=== PATIENT | female | born 2000 | race African-American/Black ===

== ENCOUNTER 2023-04-28 21:36 | Emergency (ER) | payer SELFPAY ==
[2023-04-28 21:39] VITALS: BP 116/76; PULSE 84; RESP 16; TEMP 36.4; O2SAT 100
== END 2023-04-28 22:30 | disposition left against medical advice (07) ==
LOC: ANHED 22:28
DX: R10.2 Pelvic and perineal pain (principal)
CPT/HCPCS: 99199

== ENCOUNTER 2023-04-29 04:43 | Emergency (ER) | payer SELFPAY ==
[2023-04-29 04:46] VITALS: BP 123/79; PULSE 85; RESP 20; TEMP 36.8; O2SAT 98
[2023-04-29 04:57] VITALS: BP 114/86; PULSE 84; RESP 14; TEMP 36.3; O2SAT 100
--- NOTE | 2023-04-29 05:03 | ED.FEMALEGU ---
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 Patient states that when she took her antibiotics this morning she took them while eating a popsicle and had nausea and vomiting after this. Patient did not retry the medications. Upon arrival to the emergency department patient has no active emesis and is in no distress. Related Data Allergies Allergy/AdvReac Type Severity Reaction Status Date / Time meningococcal vaccine B and C Allergy Rash Verified 04/29/23 04:57 Review of Systems Review of Systems: All systems reviewed & are unremarkable except as noted in HPI and below Exam Narrative: APPEARANCE: Well appearing, no pain, no distress, well-nourished. HEAD: normocephalic, atraumatic. EYES: PERRLA/EOMI, conjunctivae clear. NOSE: Normal no drainage EARS:TMS clear with good light reflex. THROAT: Pharynx clear, no exudate. NECK: Supple. No adenopathy, no masses. RESPIRATORY: Airway patent, respirations nonlabored. Clear to auscultation bilaterally, no rales, rhonchi, wheezing. CARDIOVASCULAR: Regular rate and rhythm without murmurs rubs or gallops. ABDOMINAL: No tenderness to palpation MUSCULOSKELETAL: Moves all extremities. Strength/ROM intact, No edema, No calf tenderness. NEURO: Alert. Cranial nerves II through XII intact. Grossly intact SKIN: Warm, dry. Normal Color Course Course Emergency Course: 22-year-old female presenting ED for evaluation of nausea and vomiting from taking doxycycline and Flagyl. Patient was treated with 2 g of azithromycin and told to stop the doxycycline and patient was started on vancomycin vaginal cream and replacement of the Flagyl. Patient states that she tried taking her medications after eating a pickle. Difficult to determine if this is an adverse reaction to the medication or if this was caused by her eating habits. Patient was encouraged to have close follow-up with her primary care physician. All questions and concerns were addressed. Vital Signs Vital signs: Vital Signs Temperature 98.2 F 04/29/23 04:46 Pulse Rate 85 04/29/23 04:46 Respiratory Rate 20 04/29/23 04:46 Blood Pressure 123/79 04/29/23 04:46 Pulse Oximetry 98 04/29/23 04:46 Temperature 98.1 F 04/29/23 06:09 Pulse Rate 70 04/29/23 06:09 Respiratory Rate 14 04/29/23 06:09 Blood Pressure 113/72 04/29/23 06:09 Pulse Oximetry 99 04/29/23 06:09 Discharge Plan Discharge Clinical Impression: Nausea & vomiting Patient Disposition: Home, Self-Care Condition: Stable Instructions: Antibiotic Form Additional Instructions: stop taking the doxycycline, you were treated with 2 g of p.o. azithromycin. Stop taking the metronidazole and start using the vancomycin vaginal cream as directed. Have close follow-up with your primary care physician. If you have any worsening symptoms then please call or return to the emergency department. Prescriptions: New clindamycin phosphate 2 % cream 1 appful vaginal DAILY 7 Days Qty: 40 0RF Follow-up/Referrals: UNKNOWN,DOCTOR [Primary Care Provider] -
[2023-04-29] MEDS: SODIUM CHLORIDE 0.9% IV 1,000 ML 999 ML IV CONT (05:11)
[2023-04-29] MEDS: ONDANSETRON INJ 4 MG/2 ML VIAL IV PUSH (05:12)
[2023-04-29] MEDS: HYDROmorphone HCL INJ (*CRX) 1 MG/ML SYR 0.5 MG IV PUSH (05:13)
[2023-04-29] MEDS: AZITHROMYCIN 250 MG TABLET 2000 MG PO (05:29)
[2023-04-29 06:09] VITALS: BP 113/72; PULSE 70; RESP 14; TEMP 36.7; O2SAT 99
== END 2023-04-29 06:10 | disposition home or self-care (01) ==
PROVIDERS: Emergency Provider Emergency Medicine
DX: R11.2 Nausea with vomiting, unspecified (principal)
CPT/HCPCS: 96361; 96374; 96375; 99284; A9270; J1170; J2405; J7030

== ENCOUNTER 2023-07-18 22:27 | Emergency (ER) | payer SELFPAY ==
--- NOTE | ~2023-07-18 | CT_ITS ---
CT of the Abdomen and Pelvis: Indication: Pelvic pain Technique: 2.5 mm axial scans were obtained through the abdomen and pelvis following intravenous adm inistration of 100 cc of Omnipaque 350. Dose reduction technique was used on this scan by utilizing a utomated exposure control and iterative reconstruction technique. The dose-length product (DLP) was 1 85.85 mGy-cm. Findings: Scans through the lung bases are unremarkable. The liver, spleen, pancreas, gallbladder, adrenals and kidneys are within normal limits. No evidence of aortic aneurysm. No lymphadenopathy. No bowel obstruction or bowel wall thickening. There is no evidence to suggest acute appendicitis. Images through the pelvis were performed. Urinary bladder unremarkable. No adnexal mass evident. Prob able small amount of free fluid in the pelvis. Impression: Probable small amount of free fluid in the pelvis, nonspecific. No other distinct abnormality evident. Reviewed, dictated and finalized at [facility]. Impression: Probable small amount of free fluid in the pelvis, nonspecific. No other distinct abnormality evident.
[2023-07-18 22:33] VITALS: BP 121/75; PULSE 86; RESP 14; TEMP 36.2; O2SAT 99
[2023-07-18 23:00] LABS: Appearance Urine Cloudy (Clear); Bacteria Urine None Seen /hpf; Bilirubin Urine Negative (Negative); Blood Urine Negative (Negative); Color Urine Yellow (Yellow); Glucose Urine UA Negative (Negative); Ketones Urine Negative (Negative); Leukocyte Esterase Ur Negative LEU/UL (Negative); Nitrate Urine Negative (Negative); Non Pathogenic Casts 0-2; Protein Urine Negative (Negative); RBC Urine 0-2 /hpf (0-2); Specific Grav Ur 1.018 (1.001-1.035); Squamous Epithelial Cell Urine Occasional /hpf (Few); WBC Urine 0-5 /hpf
[2023-07-18 23:09] LABS: Add Urine Microscopic? YES
--- NOTE | 2023-07-18 23:54 | ED.GENADULT ---
HPI - General Adult General Chief complaint: Urogenital-Female Stated complaint: pelvic pain Time Seen by Provider: 07/18/23 22:49 History of Present Illness HPI narrative: patient 22-year-old female presents emergency department with chief complaint of left inguinal and left lower quadrant pain. Patient reports that last several days she has had a discomfort feeling in left hip area patient states she feels as though something is moving around whenever she walks patient reports no vaginal discharge denies dysuria reports that she has had no abnormal bleeding reports no flank pain denies vomiting or diarrhea. Related Data Allergies Allergy/AdvReac Type Severity Reaction Status Date / Time meningococcal vaccine B and C Allergy Rash Verified 04/29/23 04:57 Review of Systems Review of Systems: A 10 system review of systems was completed on the patient and is negative except for what is stated in the HPI. Nursing and ancillary documentation was reviewed. Exam Narrative: GENERAL: Well-appearing, well-nourished, and in no acute distress. HEAD: Normocephalic, atraumatic. EYES: PERRLA and EOMI. ENT: Nares clear, no rhinorrhea or epistaxis. Mucous membranes moist. NECK: Supple. CHEST: Clear to auscultation. No respiratory distress. HEART: Regular rate and rhythm. No murmur heard. Normal peripheral pulses. ABDOMEN: Soft, Minimal discomfort in the left lower quadrant, nondistended, normal active bowel sounds. EXTREMITIES: Normal range of motion. No edema. SKIN: Warm, dry, no rash. NEURO: No focal deficits. Alert and oriented x3. PSYCH: Normal mood and affect. Course Vital Signs Vital signs: Vital Signs Temperature 36.2 C L 07/18/23 22:33 Pulse Rate 86 07/18/23 22:33 Respiratory Rate 14 07/18/23 22:33 Blood Pressure 121/75 07/18/23 22:33 Pulse Oximetry 99 07/18/23 22:33 Temperature 36.2 C L 07/18/23 22:33 Pulse Rate 86 07/18/23 22:33 Respiratory Rate 14 07/18/23 22:33 Blood Pressure 121/75 07/18/23 22:33 Pulse Oximetry 99 07/18/23 22:33 Medical Decision Making [facility] Narrative Medical decision making narrative: differential diagnosis includes diverticulitis, colitis, ovarian cyst, laboratory studies were obtained on the patient showed normal CBC normal CMP urinalysis showed no evidence UTI test was negative CT scan of the abdomen pelvis showed evidence of a 2.1 x 1 x 1.4 cm cystic structure of the left posterior pelvis consistent with an ovarian cyst Vital Signs Vital Signs: Vital Signs Temperature 36.2 C L 07/18/23 22:33 Pulse Rate 86 07/18/23 22:33 Respiratory Rate 14 07/18/23 22:33 Blood Pressure 121/75 07/18/23 22:33 Pulse Oximetry 99 07/18/23 22:33 Temperature 36.2 C L 07/18/23 22:33 Pulse Rate 86 07/18/23 22:33 Respiratory Rate 14 07/18/23 22:33 Blood Pressure 121/75 07/18/23 22:33 Pulse Oximetry 99 07/18/23 22:33 Lab Data 07/19/23 00:02 07/19/23 00:02 Labs: Lab Results 07/18/23 07/19/23 07/19/23 Range/Units 22:39 00:02 00:18 WBC 5.6 (4.5-10.0) K/mm3 RBC 4.02 L (4.2-5.4) M/mm3 Hgb 12.3 (12.0-15.0) g/dL Hct 37.2 (37.0-47.0) % MCV 92.5 (80-100) fl MCH 30.6 (26-34) pg MCHC 33.1 (32-36) g/dl RDW 13.5 (11.5-14.5) % Plt Count 187 (150-375) k/mm3 MPV 10.6 H (7.4-10.4) fl Immature Gran % (Auto) 0.2 (0-0.5) % Neut % (Auto) 42.1 L (45.5-73.1) % Lymph % (Auto) 47.6 H (18.3-44.2) % [place] % (Auto) 5.7 (2.6-8.5) % Eos % (Auto) 3.7 (0-4.4) % Baso % (Auto) 0.7 (0.2-1.2) % Lymph # (Auto) 2.68 (0.9-3.2) K/mm3 [place] # (Auto) 0.3 (0.1-0.6) K/mm3 Eos # (Auto) 0.2 (0-0.3) K/mm3 Baso # (Auto) 0.0 (0.0-0.1) K/mm3 Abs Immat Gran (auto) 0.01 (0.00-0.031) K/mm3 Absolute Neuts (auto) 2.4 (1.3-6.7) K/mm3 Absolute Nucleated RBC 0.0 (0.0-0.012) K/mm3 Nucleated RBC % 0.0
[2023-07-19 00:13] LABS: Basophils Percent Auto 0.7 % (0.2-1.2); Eosinophils Absolute Auto 0.2 K/mm3 (0-0.3); Eosinophils Percent Auto 3.7 % (0-4.4); Hematocrit 37.2 % (37.0-47.0); Hemoglobin 12.3 g/dL (12.0-15.0); Immature Granulocyte Absolute 0.01 K/mm3 (0.00-0.031); Immature Granulocyte Percent A 0.2 % (0-0.5); Lymphocytes Absolute Auto 2.68 K/mm3 (0.9-3.2); Lymphocytes Percent Auto 47.6 % (18.3-44.2); Mean Corpuscular HGB Conc 33.1 g/dl (32-36); Mean Corpuscular Hemoglobin 30.6 pg (26-34); Mean Corpuscular Volume 92.5 fl (80-100); Mean Platelet Volume 10.6 fl (7.4-10.4); Monocytes Absolute Auto 0.3 K/mm3 (0.1-0.6); Monocytes Percent Auto 5.7 % (2.6-8.5); Neutrophils Absolute Auto 2.4 K/mm3 (1.3-6.7); Neutrophils Percent Auto 42.1 % (45.5-73.1); Platelet Count Result 187 k/mm3 (150-375); Red Blood Count 4.02 M/mm3 (4.2-5.4); Red Cell Distribution Width 13.5 % (11.5-14.5); White Blood Count 5.6 K/mm3 (4.5-10.0)
[2023-07-19 00:28] LABS: Alanine Aminotransferase 25 U/L (6-35); Albumin Level 4.3 g/dL (3.5-5.1); Alkaline Phosphatase 43 U/L (38-126); Anion Gap 1 mmol/L (8-16); Aspartate Amino Transferase 26 U/L (14-36); Bilirubin,Total 1.1 mg/dL (0.2-1.3); Blood Urea Nitrogen 11 mg/dL (7-17); Calcium 9.4 mg/dL (8.4-10.2); Carbon Dioxide 31 mmol/L (22-30); Chloride 106 mmol/L (98-107); Estimated CRCL calculation 104 ml/min; Estimated Glomerular Filt Rate > 60; Glucose 87 mg/dL (65-110); Lipase 113 U/L (23-300); Potassium 3.7 mmol/L (3.4-5.0); Sodium 138 mmol/L (137-145)
[2023-07-19 00:29] LABS: Pregnancy On Board Control Positive; Urine Pregnancy Test Negative
[2023-07-19] MEDS: KETOROLAC 15 MG/ML VIAL (*BKC) IV PUSH (01:36)
[2023-07-19 02:14] VITALS: PULSE 72; RESP 12; O2SAT 100
== END 2023-07-19 02:15 | disposition home or self-care (01) ==
PROVIDERS: Emergency Provider Emergency Medicine
DX: N83.202 Unspecified ovarian cyst, left side (principal); R10.2 Pelvic and perineal pain
CPT/HCPCS: 36415; 74177; 80053; 81001; 81025; 83690; 85025; 96374; 99284; J1885; Q9967

== ENCOUNTER 2023-09-24 12:49 | Emergency (ER) | payer SELFPAY ==
[2023-09-24 12:56] VITALS: BP 138/94; PULSE 80; RESP 18; TEMP 36.4; O2SAT 100
[2023-09-24 13:31] LABS: Appearance Urine Cloudy (Clear); Bacteria Urine 4+ /hpf; Bilirubin Urine Negative (Negative); Blood Urine Negative (Negative); Color Urine Dark Yellow (Yellow); Glucose Urine UA Negative (Negative); Ketones Urine 2+ mg/dL (Negative); Leukocyte Esterase Ur Trace LEU/UL (Negative); Nitrate Urine Negative (Negative); Non Pathogenic Casts 0-2; Protein Urine Trace mg/dL (Negative); RBC Urine 0-2 /hpf (0-2); Specific Grav Ur 1.027 (1.001-1.035); Squamous Epithelial Cell Urine Many /hpf (Few); WBC Urine 0-5 /hpf (0-3)
[2023-09-24 13:33] LABS: Add Urine Microscopic? YES
[2023-09-24] MEDS: KETOROLAC 30 MG/ML VIAL (*BKC) 15 MG IM (13:38)
--- NOTE | 2023-09-24 13:48 | ED.ABDPAIN ---
HPI - Abdominal Pain General Chief Complaint: Abdominal Pain Stated Complaint: ovarian cyst Time Seen by Provider: 09/24/23 12:58 History of Present Illness HPI narrative: Patient presents with some left side pelvic pain that feels like when she had ovarian cyst the last 2 times, has been confirmed on ultrasound before, she is about 2 weeks out from her last period, she states that pain today it is definitely not as bad as has been the past and is quite manageable with some heat packs, she had been given an NSAID in the past that helped quite a bit but she is out of it. No vaginal discharge or concern for . No dysuria Related Data Allergies Allergy/AdvReac Type Severity Reaction Status Date / Time meningococcal vaccine B and C Allergy Rash Verified 04/29/23 04:57 Review of Systems Review of Systems: All systems reviewed & are unremarkable except as noted in HPI and below Exam Narrative: EXAMINATION OF ORGAN SYSTEMS/BODY AREAS: Constitutional: Vital signs per nursing GENERAL:[No acute distress, non-toxic appearing.] HEAD: Normal with no signs of head trauma. EYES: EOMI, conjunctiva normal ENT: Hearing grossly intact LUNGS: Nonlabored breathing. HEART: [Regular rate and rhythm] ABD: [Soft], [nontender to palpation] EXT: Normal range of motion SKIN: [No rashes or lesions.] NEURO: [Alert and oriented x 3. No gross focal sensory or strength deficits.] PSYCH: Normal affect Course Vital Signs Vital signs: Vital Signs Temperature 97.6 F 09/24/23 12:56 Pulse Rate 80 09/24/23 12:56 Respiratory Rate 18 09/24/23 12:56 Blood Pressure 138/94 H 09/24/23 12:56 Pulse Oximetry 100 09/24/23 12:56 Oxygen Delivery Room Air 09/24/23 12:56 Temperature 97.6 F 09/24/23 12:56 Pulse Rate 80 09/24/23 12:56 Respiratory Rate 18 09/24/23 12:56 Blood Pressure 138/94 H 09/24/23 12:56 Pulse Oximetry 100 09/24/23 12:56 Oxygen Delivery Room Air 09/24/23 12:56 MDM - Abdominal Pain MDM Narrative Medical decision making narrative: 23-year-old female with history of ovarian cyst presents here with what feels like similar symptoms, not as bad as has been in the past, pain quite tolerable, she would like to get a refill on the diclofenac that worked well for her in the past, she states she has tried Motrin but it just does not seem to be is helpful. She is very well-appearing here, I did offer an ultrasound however she states that this feels exactly like has been in the past and does not feel like she needs repeat imaging and I completely agree. test is negative, urine test does show some ketones and bacteria however I do think this is contaminated with large amount of squamous epithelial cells and no WBCs so I feel unlikely UTI especially as she has no symptoms. I did refill her diclofenac and she has follow-up already with OBGYN, I let her know she she can return for any further issues. Lab Data Labs: Lab Results 09/24/23 Range/Units 13:20 Urine Color Dark yellow (Yellow) Urine Appearance Cloudy H (Clear) Urine pH 6.0 (5.0-9.0) Ur Specific [place] 1.027 (1.001-1.035) Urine Protein Trace (Negative) mg/dL Urine Glucose (UA) Negative (Negative) mg/dL Urine Ketones 2+ H (Negative) mg/dL Ur Blood (Man) Negative (Negative) Urine Nitrate Negative (Negative) Urine Bilirubin Negative (Negative) Urine Urobilinogen 1.0 (<2.0) mg/dL Leukocyte Esterase Rfl Trace H (Negative) ZECHARIAH/UL Urine RBC 0-2 (0-2) /hpf Urine WBC 0-5 (0-3) /hpf Ur Squamous Epith Cells Many H (Few) /hpf Urine Bacteria 4+ H /hpf Urine Casts 0-2 UCG Bedside Result Negative Reference Range: Negative Discharge Plan Discharge Clinical Impression: Pelvic pain Patient Disposition: Home, Self-Care Condition: Stable Instructions: Antibiotic Form, Pelvic Pain (ED) Additiona
[2023-09-24 14:02] VITALS: BP 114/76; PULSE 79; RESP 17; O2SAT 99
== END 2023-09-24 14:03 | disposition home or self-care (01) ==
PROVIDERS: Emergency Provider Emergency Medicine
DX: R10.2 Pelvic and perineal pain (principal)
CPT/HCPCS: 81001; 81025; 96372; 99283; J1885

== ENCOUNTER 2024-12-06 10:21 | Emergency (ER) | payer OTHER, SELFPAY ==
--- OUTSIDE RECORDS SUMMARY | 2024-12-06 10:31 | XMS_ITS | Clinical Summary ---
Author Organization [facility] Address [address] [place] [address] Care Team Providers Care Bed Laster Name Role Phone Jeri Courtney Primary Care Provi day Allergies Active Allergy Reactions Criticality Noted Date Comments Meningococcal Vaccine B And C Rash Medium 2022 Social History Tobacco Use Types Packs/Day Years Used Date Smoking Tobacco: Never Assessed Personal Safety Answer Date Recorded Getting School Help Needed Not on file 04/26 Comments No Sex and Gender Information Value Date Recorded Sex Assigned at Not on file Legal Sex Female 2:56 AM EVAPORATOR Gender Identity Not on file Sexual Orientation Not on file Last Filed Vital Signs Vital Sign Reading Time Taken Comments Blood Pressure 133/89 04/26/2023 4:24 PM EVAPORATOR Pulse 81 04/26/2023 4:24 PM EVAPORATOR Temperature 36.6 C (97.9 F) 04/26/2023 4:24 PM EVAPORATOR Respiratory Rate 18 04/26/2023 4:24 PM EVAPORATOR Oxygen Saturation 99% 04/26/2023 4:24 PM EVAPORATOR Inhaled Oxygen Concentration - - Weight 54.4 kg (120 lb) 04/26/2023 4:24 PM EVAPORATOR Height 160 cm (5' 3) 04/26/2023 4:24 PM EVAPORATOR Body Mass Index 21.26 04/26/2023 4:24 PM EVAPORATOR Plan of Treatment Health Maintenance Due Date Last Done Comments Cervical Cancer Screening 2001 Depression Screening 2001 Hepatitis C Screening 2001 Meningococcal B Vaccine (2 of 2 - Bexsero SCDM 2-dose series) 06/17/2018 12/15/2017 Regular Well Visit/Exam 18-64 09/10/2019 DTaP/Tdap/Td Vaccine (7 - Td or Tdap) 12/13/2022 12/13/2012, 11/08/2006, 01/03/2003, Additional history exists Influenza Vaccine (#1) 2025 7, 03/12/2016, 03/26/2015, Additional history exists Hepatitis B Screening Completed 04/03/2002 , 2001, 2001 Pneumococcal vaccine <65 Aged Out 002, 01/22/2002, 2001 No longer eligible based on patient's age to complete this topic Varicella Vaccines Completed 12/11/2010, 0 11/08/2006, 11/05/2002 HPV Vaccines Completed 02/25/2012, 10/07, 08/18/2011 Care Teams Bed Laster Relationship Specialty Start Date End Date Jeri Courtney PA [facility] [place] [address] PCP - General Physician Management Nurse Rn 04/26/23
--- OUTSIDE RECORDS SUMMARY | 2024-12-06 10:31 | XMS_ITS | Referral Summary ---
Author Organization [facility] Address [address] [place] [address] Care Team Providers Care Figure Skater Name Role Phone Jeri Courtney Primary Care [...] on file Legal Sex Female 2:56 AM MICROBIOLOGY DIRECTOR Gender Identity Not on file Sexual Orientation Not on file Last Filed Vital Signs Vital Sign Reading Time Taken Comments Blood Pressure 133/89 04/26/2023 4:24 PM MICROBIOLOGY DIRECTOR Pulse 81 04/26/2023 4:24 PM MICROBIOLOGY DIRECTOR Temperature 36.6 C (97.9 F) 04/26/2023 4:24 PM MICROBIOLOGY DIRECTOR Respiratory Rate 18 04/26/2023 4:24 PM MICROBIOLOGY DIRECTOR Oxygen Saturation 99% 04/26/2023 4:24 PM MICROBIOLOGY DIRECTOR Inhaled Oxygen Concentration - - Weight 54.4 kg (120 lb) 04/26/2023 4:24 PM MICROBIOLOGY DIRECTOR Height 160 cm (5' 3) 04/26/2023 4:24 PM MICROBIOLOGY DIRECTOR Body Mass Index 21.26 04/26/2023 4:24 PM MICROBIOLOGY DIRECTOR Plan of Treatment Not on file Care Teams Figure Skater Relationship Specialty Start Date End Date Jeri Courtney PA [address] [place] [id number] PCP - General Physician Shop Assistant 04/26/23
--- OUTSIDE RECORDS SUMMARY | 2024-12-06 10:31 | XMS_ITS | Clinical Summary ---
Author Organization [facility] Address [address] [place] [address] Care Team Providers Care Home Health Care Coordinator Name Role Phone Chela Vieira MD Primary Care Provider [phone] Chela Vieira MD Unavailable Chela Vieira MD Unavailable Source Comments [facility],non-owned Affiliates and Associated Physician Practices is amultiple site organization consisting of ambulatory clinics and hospital sitesin [place], [place] and [place]. This disclosure is being madepursuant to the Care Everywhere program and may not contain all information available regarding this patient. Last updated 18.[facility] Allergies No known active allergies Medications * This document contains information received from the source organization and may not represent a complete record from that organization. * Be aware that medications may not be up to date on this document. Alwaysverify current medications with the patient. aspirin 81 MG tablet Take 81 mg by mouth 3 times daily as needed. Active levETIRAcetam (KEPPRA) 500 MG tablet Take 1 tablet by mouth 2 times daily 60 tablet 5 0 Active Additional Information Patient not taking.Reported on 11/13/2019 diazePAM (DIASTAT) 10 MG gel Insert 10 mg into the rectum once as needed for Seizures For seizure for 5 min., may repeat if seizure continues for 5 min. 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 The first event was not detailed well by staff at school and limited information able to be provided by patient. The second event was witnessed, had common semiology for seizures and was in setting of illness, likely lowering her threshold to have seizure. Although Naty's EEG today is normal, the history of events and her strong family history of seizures (both father and paternal aunt have epilepsy) make generalized epilepsy the most likely etiology for the events she has had this spring. Decision to move forward with treatment was determined by comfort level of family, risk of having a 3rd event and Naty's plan for moving to college in December. Plan: -We discussed option of observing Naty this summer since she has not had another event since 07/29/19, however due in part to patient leaving home for college in Fall and likelihood of having another event in the future, it was determined by family and our team that best option would be to start medication before transitioning to college. -Keppra 500mg BID (20mg/kg/day) to start this week. If not good control on this dose, would increase to 1000mg BID (40mg/kg/day) -ALready given Diastat 10mg, will give another script for refill and to keep both home and in her purse for work -Seizure precautions including not driving. She is aware she cannot drive for 6 months (from last event 07/29/19) and will need to follow regulations in [place] for epilepsy when obtaining drivers license in [place] (she has not yet taken her test). -Mother instructed to speak to college and to inquire about what documentation is needed for the college and to have Diastat on her person at school. -Plan for MRI brain without sedation in next few weeks at family's convenience. I will call to follow up with family on results Abnormal weight loss 01/15/2013 Overview (01/21/2013): 11 4/12[age] AA female with reported weight loss, poor eating habits per mom. Patient denies any body image issues but endorses emotional issues related to not knowing her biological father who is incarcerated and her dad Braydon. Naty would like to be able to talk with her mother more. Naty currently fits disordered eating pattern but will continue to re- evaluate as recommendations are made and able to follow weight in the office. Psychosocial stressors 01/15/2013 Overview (01/21/2013): Biological father not involved in Naty's life. Naty is wondering a lot about him and has no outlet for this. This topic creates a lot of discord between Naty and Braydon. Naty's mother has had loss of former and sister about 6- 10 years ago. Depression 01/15/2013 Overview (01/21/2013): Patient reports symptoms of sadness for several years. Patient is scheduled to see a counselor on 02/07. Mother and patient are open to medication. Mother sees a psychiatrist and was placed on trazadone for mild depression. Dysphagia 01/02/2010 GERD (gastroesophageal reflux disease) 0 FTT (failure to thrive) in child 01/02/2010 Family History Medical History Relation Name Comments Seizures Father Renal Disease Maternal Grandmother GERD - Gastroesophageal Refl ux Disease Mother Also has history of depression and anxiety and is on medication. She has always had to work to keep her weight up. Glaucoma Mother Seizures Paternal Aunt Celiac Disease Neg Hx Crohn's Disease Neg Hx IBD Neg Hx Ulcerative Colitis Neg Hx Relation Name Status Comments Father Maternal Grandmother Mother Paternal Aunt Social History Tobacco Use Types Packs/Day Years Used Date Smoking Tobacco: Never Smokeless Tobacco: Never Alcohol Use Standard Drinks/Week Comments Never 0 (1 standard drink = 0.6 oz pur e alcohol) AUDIT-C Answer Date Recorded Frequency of Alcohol Consumption Never 11/07/2019 Average Number of Drinks Not on file 020 Frequency of Binge Drinking Not on file 05/2019 Comments No Sex and Gender Information Value Date Recorded Sex Assigned at Not on file Legal Sex Female 9:09 AM HOT PIPE GAUGER Gender Identity Not on file Sexual Orientation Not on file Last Filed Vital Signs Vital Sign Reading Time Taken Comments Blood Pressure 120/64 10/19/2019 3:20 PM CDT Pulse 80 07/29/2019 11:28 AM CDT Temperature 37.4 C (99.3 F) 07/29/2019 11:28 AM CDT Respiratory Rate 20 07/29/2019 11:2 8 AM CDT Oxygen Saturation 99% 07/29/2019 11: 28 AM CDT Inhaled Oxygen Concentration - - Weight 50.3 kg (110 lb 14.3 oz) 10/19/2019 3:20 PM CDT Height 157.3 cm (5' 1.93) 10/19/2019 3:20 PM CD T Body Mass Index 20.33 10/19/2019 3:20 PM CDT Plan of Treatment Health Maintenance Due Date Last Done Comments HIV SCREENING 2016 HPV VACCINE (1 - 3-dose series) 2016 CHLAMYDIA/GONORRHEA SCREENING 2017 MENINGOCOCCAL (Group B) VACC INE SHARED DECISION-MAKING (1 of 2 - Standard) 2017 HEPATITIS C SCREENING 09/05/2019 DTAP/TDAP/TD VACCINES (1 - Tdap) 2020 HEPATITIS B VACCINE (1 of 3 - 19+ 3-dose series) 2020 COVID-19 VACCINE (1 - 2023-2 5 season) 2024 DEPRESSION SCREENING 05/09/2024 INFLUENZA VACCINE (#1) 2025 ZOSTER VACCINE (1 of 2) 09/10/2051 HIB VACCINE Aged Out No longer eligi ble based on patient's age to complete this topic MENINGOCOCCAL GROUPS A/C/Y/W VACCINE Aged Out No longer eligible b ased on patient's age to complete this topic PNEUMOCOCCAL VACCINE Aged Out No long er eligible based on patient's age to complete this topic Insurance [facility] Care Teams Home Health Care Coordinator Relationship Specialty Start Date End Date Chela Vieira MD [address] [place] [phone] PCP - General 11/07/19 Chela Vieira MD [address] [place] [phone] 11/07/19 Chela Vieira MD [address] [place] [address] Pediatrics 08/01/19
[2024-12-06 10:33] VITALS: BP 125/104; PULSE 78; RESP 16; O2SAT 100
[2024-12-06 10:48] LABS: BEDSIDEPREGUCG Negative (Negative)
--- NOTE | 2024-12-06 10:48 | ED_ITS ---
HPI - Female Genitourinary General Chief complaint: Vaginal Bleeding <Florina Powell APRN - Last Filed: 12/06/24 10:50> Stated complaint: IRREGULAR VAG BLEEDING <Folrina Powell APRN - Last Filed: 12/06/24 10:50> Time Seen by Provider: 12/06/24 11:17 <Florina Powell APRN - Last Filed: 12/06/24 10:50> Focused HPI: Patient is a 24-year-old female who presents to the ER with abnormal vaginal bleeding. She reports she finished her last menstrual period 4 days ago. Patient reports she has started ?light, watery spotting at this time. She denies any dizziness, abdominal pain, or recent fevers. Patient reports she is not on control, but is relatively confident she is not . She denies any pertinent medical history relevant to this ER visit. GENERAL: Well-appearing, well-nourished, and in no acute distress. HEAD: Normocephalic, atraumatic. CHEST: Clear to auscultation. ?No respiratory distress. HEART: Regular rate and rhythm.? NEURO: ?Alert and oriented x3. Patient screened in triage and initial orders placed.? ?Additional care and disposition to be based upon?diagnostic testing and treatment. <Eran Bianchi MD - Last Filed: 12/06/24 13:59> History of Present Illness HPI Narrative: Focused HPI: Patient is a 24-year-old female who presents to the ER with abnormal vaginal bleeding. She reports she finished her last menstrual period 4 days ago. Patient reports she has started ?light, watery spotting at this time. She denies any dizziness, abdominal pain, or recent fevers. Patient reports she is not on control, but is relatively confident she is not . She denies any pertinent medical history relevant to this ER visit. GENERAL: Well-appearing, well-nourished, and in no acute distress. HEAD: Normocephalic, atraumatic. CHEST: Clear to auscultation. ?No respiratory distress. HEART: Regular rate and rhythm.? NEURO: ?Alert and oriented x3. Patient screened in triage and initial orders placed.? ?Additional care and disposition to be based upon?diagnostic testing and treatment. <Florina Powell APRN - Last Filed: 12/06/24 10:50> Agree with HPI <Eran Bianchi MD - Last Filed: 12/06/24 13:59> Related Data Allergies/Adverse reactions: Allergies Allergy/AdvReac Type Severity Reaction Status Date / Time meningococcal vaccine B and C Allergy Rash Verified 12/06/24 10:35 <Florina Powell APRN - Last Filed: 12/06/24 10:50> Review of Systems 2 Review of Systems: All systems reviewed & are unremarkable except as noted in HPI and below <Eran Bianchi MD - Last Filed: 12/06/24 13:59> Constitutional: Constitutional: Reports no additional constitutional complaints <Eran Bianchi MD - Last Filed: 12/06/24 13:59> Gastrointestinal: Gastrointestinal: Reports no additional gastrointestinal complaints <Eran Bianchi MD - Last Filed: 12/06/24 13:59> Genitourinary: Genitourinary: Reports no additional female genitourinary complaints <Eran Bianchi MD - Last Filed: 12/06/24 13:59> PMFSH Past Medical History Medical History: Medical History (Updated 12/06/24 @ 13:57 by Eran Bianchi MD) Healthy female adult <Florina Powell APRN - Last Filed: 12/06/24 10:50> Surgical History Surgical History: Surgical History (Updated 12/06/24 @ 13:53 by Eran Bianchi MD) No pertinent past surgical history <Florina Powell APRN - Last Filed: 12/06/24 10:50> Exam 2 Narrative: GENERAL: Well-appearing, well-nourished, and in no acute distress. HEAD: Normocephalic, atraumatic. ENT: Mucous membranes moist. CHEST: Clear to auscultation. No respiratory distress. HEART: Regular rate and rhythm. Normal peripheral pulses. ABDOMEN: Soft, nontender, nondistended. : Normal external genitalia. Cervix normal in appearance with os closed and no friability. Scant discharge. Trace mucoid blood from cervical os. EXTREMITIES: Normal range of motion. No edema. SKIN: Warm, dry, no rash. NEURO: Alert and oriented x3. PSYCH: Normal mood and affect. <Eran Bianchi MD - Last Filed: 12/06/24 13:59> Course Course Emergency Course: Discussed diagnosis. Recommend follow-up with Gynecology. Patient may have mild UTI given UA so antibiotics prescribed. <Eran Bianchi MD - Last Filed: 12/06/24 13:59> Vital Signs Vital signs: Vital Signs Pulse Rate 78 12/06/24 10:33 Respiratory Rate 16 12/06/24 10:33 Blood Pressure 125/104 H 12/06/24 10:33 Pulse Oximetry 100 12/06/24 10:33 Pulse Rate 78 12/06/24 10:33 Respiratory Rate 16 12/06/24 10:33 Blood Pressure 125/104 H 12/06/24 10:33 Pulse Oximetry 100 12/06/24 10:33 <Florina Powell, CAREER TECHNICAL EDUCATION TEACHER - Last Filed: 12/06/24 10:50> Vital Signs Pulse Rate 78 12/06/24 10:33 Respiratory Rate 16 12/06/24 10:33 Blood Pressure 125/104 H 12/06/24 10:33 Pulse Oximetry 100 12/06/24 10:33 Pulse Rate 78 12/06/24 10:33 Respiratory Rate 16 12/06/24 10:33 Blood Pressure 125/104 H 12/06/24 10:33 Pulse Oximetry 100 12/06/24 10:33 <Eran Bianchi MD - Last Filed: 12/06/24 13:59> MDM - Female Genitourinary Lab Data Result diagrams: 12/06/24 11:08 12/06/24 11:08 <Florina Powell APRN - Last Filed: 12/06/24 10:50> Labs: Lab Results 12/06/24 12/06/24 12/06/24 Range/Units 10:45 10:46 10:55 WBC (4.5-10.0) K/mm3 RBC (4.2-5.4) M/mm3 Hgb (12.0-15.0) g/dL Hct (37.0-47.0) % MCV (80-100) fl MCH (26-34) pg MCHC (32-36) g/dl RDW (11.5-14.5) % Plt Count (150-375) k/mm3 MPV (7.4-10.4) fl Immature Gran % (Auto) (0-0.5) % Neut % (Auto) (45.5-73.1) % Lymph % (Auto) (18.3-44.2) % Douglas % (Auto) (2.6-8.5) % Eos % (Auto) (0-4.4) % Baso % (Auto) (0.2-1.2) % Lymph # (Auto) (0.9-3.2) K/mm3 Douglas # (Auto) (0.1-0.6) K/mm3 Eos # (Auto) (0-0.3) K/mm3 Baso # (Auto) (0.0-0.1) K/mm3 Abs Immat Gran (auto) (0.00-0.031) K/mm3 Absolute Neuts (auto) (1.3-6.7) K/mm3 Absolute Nucleated RBC (0.0-0.012) K/mm3 Nucleated RBC % (0.0-0.2) % Sodium (137-145) mmol/L Potassium (3.4-5.0) mmol/L Chloride (98-107) mmol/L Carbon Dioxide (22-30) mmol/L Anion Gap (4-12) mmol/L BUN (7-17) mg/dL Creatinine (0.7-1.0) mg/dL Estim Creat Clear Calc ml/min Estimated GFR (59 - ) Glucose (65-110) mg/dL Calcium (8.4-10.2) mg/dL Total Bilirubin (0.2-1.3) mg/dL AST (14-36) U/L ALT (6-35) U/L Alkaline Phosphatase (38-126) U/L Total Protein (6.3-8.2) g/dL Albumin (3.5-5.1) g/dL Urine Color Dark yellow (Yellow) Urine Appearance Cloudy H (Clear) Urine pH 6.0 (5.0-9.0) Ur Specific Mellott 1.026 (1.001-1.035) Urine Protein 1+ H (Negative) mg/dL Urine Glucose (UA) Negative (Negative) mg/dL Urine Ketones 2+ H (Negative) mg/dL Ur Blood (Man) 2+ H (Negative) Urine Nitrate Negative (Negative) Urine Bilirubin Negative (Negative) Urine Urobilinogen 1.0 (<2.0) mg/dL Leukocyte Esterase Rfl 1+ H (Negative) ZECHARIAH/UL Urine RBC 0-2 (0-2) /hpf Urine WBC 11-20 H (0-3) /hpf Ur Squamous Epith Cells Moderate (Few) /hpf Urine Bacteria 2+ H /hpf Urine Casts 0-2 POC Urine HCG, Qual Negative (Negative) C. trachomatis (PCR) Not detected (NOT DETECTE) N. gonorrhoeae (PCR) Not detected (NOT DETECTE) 12/06/24 Range/Units 11:08 WBC 3.8 L (4.5-10.0) K/mm3 RBC 4.07 L (4.2-5.4) M/mm3 Hgb 12.7 (12.0-15.0) g/dL Hct 38.2 (37.0-47.0) % MCV 93.9 (80-100) fl MCH 31.2 (26-34) pg MCHC 33.2 (32-36) g/dl RDW 13.2 (11.5-14.5) % Plt Count 185 (150-375) k/mm3 MPV 10.2 (7.4-10.4) fl Immature Gran % (Auto) 0.3 (0-0.5) % Neut % (Auto) 44.3 L (45.5-73.1) % Lymph % (Auto) 42.2 (18.3-44.2) % Douglas % (Auto) 10.0 H (2.6-8.5) % Eos % (Auto) 2.4 (0-4.4) % Baso % (Auto) 0.8 (0.2-1.2) % Lymph # (Auto) 1.60 (0.9-3.2) K/mm3 Douglas # (Auto) 0.4 (0.1-0.6) K/mm3 Eos # (Auto) 0.1 (0-0.3) K/mm3 Baso # (Auto) 0.0 (0.0-0.1) K/mm3 Abs Immat Gran (auto) 0.01 (0.00-0.031) K/mm3 Absolute Neuts (auto) 1.7 (1.3-6.7) K/mm3 Absolute Nucleated RBC 0.000 (0.0-0.012) K/mm3 Nucleated RBC % 0.0 (0.0-0.2) % Sodium 134 L (137-145) mmol/L Potassium 4.0 (3.4-5.0) mmol/L Chloride 103 (98-107) mmol/L Carbon Dioxide 24 (22-30) mmol/L Anion Gap 7 (4-12) mmol/L BUN 15 (7-17) mg/dL Creatinine 0.70 (0.7-1.0) mg/dL Estim Creat Clear Calc 85 ml/min Estimated GFR > 60 (59 - ) Glucose 84 (65-110) mg/dL Calcium 9.2 (8.4-10.2) mg/dL Total Bilirubin 2.0 H (0.2-1.3) mg/dL AST 30 (14-36) U/L ALT 12 (6-35) U/L Alkaline Phosphatase 45 (38-126) U/L Total Protein 7.5 (6.3-8.2) g/dL Albumin 4.4 (3.5-5.1) g/dL Urine Color (Yellow) Urine Appearance (Clear) Urine pH (5.0-9.0) Ur Specific Mellott (1.001-1.035) Urine Protein (Negative) mg/dL Urine Glucose (UA) (Negative) mg/dL Urine Ketones (Negative) mg/dL Ur Blood (Man) (Negative) Urine Nitrate (Negative) Urine Bilirubin (Negative) Urine Urobilinogen (<2.0) mg/dL Leukocyte Esterase Rfl (Negative) ZECHARIAH/UL Urine RBC (0-2) /hpf Urine WBC (0-3) /hpf Ur Squamous Epith Cells (Few) /hpf Urine Bacteria /hpf Urine Casts POC Urine HCG, Qual (Negative) C. trachomatis (PCR) (NOT DETECTE) N. gonorrhoeae (PCR) (NOT DETECTE) <Florina Powell, CAREER TECHNICAL EDUCATION TEACHER - Last Filed: 12/06/24 10:50> Lab Results 12/06/24 12/06/24 12/06/24 Range/Units 10:45 10:46 10:55 WBC (4.5-10.0) K/mm3 RBC (4.2-5.4) M/mm3 Hgb (12.0-15.0) g/dL Hct (37.0-47.0) % MCV (80-100) fl MCH (26-34) pg MCHC (32-36) g/dl RDW (11.5-14.5) % Plt Count (150-375) k/mm3 MPV (7.4-10.4) fl Immature Gran % (Auto) (0-0.5) % Neut % (Auto) (45.5-73.1) % Lymph % (Auto) (18.3-44.2) % Douglas % (Auto) (2.6-8.5) % Eos % (Auto) (0-4.4) % Baso % (Auto) (0.2-1.2) % Lymph # (Auto) (0.9-3.2) K/mm3 Douglas # (Auto) (0.1-0.6) K/mm3 Eos # (Auto) (0-0.3) K/mm3 Baso # (Auto) (0.0-0.1) K/mm3 Abs Immat Gran (auto) (0.00-0.031) K/mm3 Absolute Neuts (auto) (1.3-6.7) K/mm3 Absolute Nucleated RBC (0.0-0.012) K/mm3 Nucleated RBC % (0.0-0.2) % Sodium (137-145) mmol/L Potassium (3.4-5.0) mmol/L Chloride (98-107) mmol/L Carbon Dioxide (22-30) mmol/L Anion Gap (4-12) mmol/L BUN (7-17) mg/dL Creatinine (0.7-1.0) mg/dL Estim Creat Clear Calc ml/min Estimated GFR (59 - ) Glucose (65-110) mg/dL Calcium (8.4-10.2) mg/dL Total Bilirubin (0.2-1.3) mg/dL AST (14-36) U/L ALT (6-35) U/L Alkaline Phosphatase (38-126) U/L Total Protein (6.3-8.2) g/dL Albumin (3.5-5.1) g/dL Urine Color Dark yellow (Yellow) Urine Appearance Cloudy H (Clear) Urine pH 6.0 (5.0-9.0) Ur Specific Mellott 1.026 (1.001-1.035) Urine Protein 1+ H (Negative) mg/dL Urine Glucose (UA) Negative (Negative) mg/dL Urine Ketones 2+ H (Negative) mg/dL Ur Blood (Man) 2+ H (Negative) Urine Nitrate Negative (Negative) Urine Bilirubin Negative (Negative) Urine Urobilinogen 1.0 (<2.0) mg/dL Leukocyte Esterase Rfl 1+ H (Negative) ZECHARIAH/UL Urine RBC 0-2 (0-2) /hpf Urine WBC 11-20 H (0-3) /hpf Ur Squamous Epith Cells Moderate (Few) /hpf Urine Bacteria 2+ H /hpf Urine Casts 0-2 POC Urine HCG, Qual Negative (Negative) C. trachomatis (PCR) Not detected (NOT DETECTE) N. gonorrhoeae (PCR) Not detected (NOT DETECTE) 12/06/24 Range/Units 11:08 WBC 3.8 L (4.5-10.0) K/mm3 RBC 4.07 L (4.2-5.4) M/mm3 Hgb 12.7 (12.0-15.0) g/dL Hct 38.2 (37.0-47.0) % MCV 93.9 (80-100) fl MCH 31.2 (26-34) pg MCHC 33.2 (32-36) g/dl RDW 13.2 (11.5-14.5) % Plt Count 185 (150-375) k/mm3 MPV 10.2 (7.4-10.4) fl Immature Gran % (Auto) 0.3 (0-0.5) % Neut % (Auto) 44.3 L (45.5-73.1) % Lymph % (Auto) 42.2 (18.3-44.2) % Douglas % (Auto) 10.0 H (2.6-8.5) % Eos % (Auto) 2.4 (0-4.4) % Baso % (Auto) 0.8 (0.2-1.2) % Lymph # (Auto) 1.60 (0.9-3.2) K/mm3 Douglas # (Auto) 0.4 (0.1-0.6) K/mm3 Eos # (Auto) 0.1 (0-0.3) K/mm3 Baso # (Auto) 0.0 (0.0-0.1) K/mm3 Abs Immat Gran (auto) 0.01 (0.00-0.031) K/mm3 Absolute Neuts (auto) 1.7 (1.3-6.7) K/mm3 Absolute Nucleated RBC 0.000 (0.0-0.012) K/mm3 Nucleated RBC % 0.0 (0.0-0.2) % Sodium 134 L (137-145) mmol/L Potassium 4.0 (3.4-5.0) mmol/L Chloride 103 (98-107) mmol/L Carbon Dioxide 24 (22-30) mmol/L Anion Gap 7 (4-12) mmol/L BUN 15 (7-17) mg/dL Creatinine 0.70 (0.7-1.0) mg/dL Estim Creat Clear Calc 85 ml/min Estimated GFR > 60 (59 - ) Glucose 84 (65-110) mg/dL Calcium 9.2 (8.4-10.2) mg/dL Total Bilirubin 2.0 H (0.2-1.3) mg/dL AST 30 (14-36) U/L ALT 12 (6-35) U/L Alkaline Phosphatase 45 (38-126) U/L Total Protein 7.5 (6.3-8.2) g/dL Albumin 4.4 (3.5-5.1) g/dL Urine Color (Yellow) Urine Appearance (Clear) Urine pH (5.0-9.0) Ur Specific Mellott (1.001-1.035) Urine Protein (Negative) mg/dL Urine Glucose (UA) (Negative) mg/dL Urine Ketones (Negative) mg/dL Ur Blood (Man) (Negative) Urine Nitrate (Negative) Urine Bilirubin (Negative) Urine Urobilinogen (<2.0) mg/dL Leukocyte Esterase Rfl (Negative) ZECHARIAH/UL Urine RBC (0-2) /hpf Urine WBC (0-3) /hpf Ur Squamous Epith Cells (Few) /hpf Urine Bacteria /hpf Urine Casts POC Urine HCG, Qual (Negative) C. trachomatis (PCR) (NOT DETECTE) N. gonorrhoeae (PCR) (NOT DETECTE) <Eran C. Arias, MD - Last Filed: 12/06/24 13:59> Discharge Plan Discharge Clinical Impression: Dysfunctional uterine bleeding, UTI (urinary tract infection) <Florina Powell APRN - Last Filed: 12/06/24 10:50> Patient Disposition: Home <Florina Powell APRN - Last Filed: 12/06/24 10:50> Condition: Stable <lForina Powell APRN - Last Filed: 12/06/24 10:50> Instructions: Abnormal (Dysfunctional) Uterine Bleeding (ED), Urinary Tract Infection in Women (ED) <Florina Powell APRN - Last Filed: 12/06/24 10:50> Additional Instructions: You should return to the emergency department if you develop severe nausea and vomiting and are unable to keep liquids down, if you develop severe back/flank or stomach pain, or if your symptoms are not clearly improving at home. <Florina Powell APRN - Last Filed: 12/06/24 10:50> Patient Language: Japanese <Florina Powell APRN - Last Filed: 12/06/24 10:50> Prescriptions: New cephalexin 500 mg capsule 500 mg PO Q12H Qty: 10 0RF No Action diclofenac potassium 50 mg tablet 50 mg PO TID PRN (Reason: pain) Qty: 21 0RF diclofenac potassium 50 mg tablet 50 mg PO TID PRN (Reason: pain) Qty: 21 0RF clindamycin phosphate 2 % cream 1 appful vaginal DAILY 7 Days Qty: 40 0RF <Florina Powell APRN - Last Filed: 12/06/24 10:50> Follow-up/Referrals: Bonny Pichardo MD [Physician] - 1 Week PHYSICIAN,DETECTIVE [employer] [Primary Care Provider] - <Florina Powell APRN - Last Filed: 12/06/24 10:50>
[2024-12-06 11:08] LABS: Add Urine Microscopic? YES; Appearance Urine Cloudy (Clear); Glucose Urine UA Negative (Negative); Leukocyte Esterase Ur 1+ LEU/UL (Negative); Nitrate Urine Negative (Negative); Non Pathogenic Casts 0-2; Specific Grav Ur 1.026 (1.001-1.035)
[2024-12-06 11:13] LABS: Hematocrit 38.2 % (37.0-47.0); Hemoglobin 12.7 g/dL (12.0-15.0); Immature Granulocyte Percent A 0.3 % (0-0.5); Lymphocytes Absolute Auto 1.60 K/mm3 (0.9-3.2); Mean Corpuscular HGB Conc 33.2 g/dl (32-36); Mean Corpuscular Hemoglobin 31.2 pg (26-34); Mean Corpuscular Volume 93.9 fl (80-100); Nucleated Red Blood Cells Absolute Auto 0.000 K/mm3 (0.0-0.012); Nucleated Red Blood Cells Perc 0.0 % (0.0-0.2); Platelet Count Result 185 k/mm3 (150-375); Red Blood Count 4.07 M/mm3 (4.2-5.4); White Blood Count 3.8 K/mm3 (4.5-10.0)
--- OUTSIDE RECORDS SUMMARY | 2024-12-06 11:31 | XMS_ITS | Clinical Summary ---
Author Organization [facility] Address [address] [place] [address] Care Team Providers Care Dip Stand Loader Name Role Phone Jeri Courtney Primary Care [...] on file Legal Sex Female 2:56 AM IMPRESS ASSOCIATE Gender Identity Not on file Sexual Orientation Not on file Last Filed Vital Signs Vital Sign Reading Time Taken Comments Blood Pressure 133/89 04/26/2023 4:24 PM IMPRESS ASSOCIATE Pulse 81 04/26/2023 4:24 PM IMPRESS ASSOCIATE Temperature 36.6 C (97.9 F) 04/26/2023 4:24 PM IMPRESS ASSOCIATE Respiratory Rate 18 04/26/2023 4:24 PM IMPRESS ASSOCIATE Oxygen Saturation 99% 04/26/2023 4:24 PM IMPRESS ASSOCIATE Inhaled Oxygen Concentration - - Weight 54.4 kg (120 lb) 04/26/2023 4:24 PM IMPRESS ASSOCIATE Height 160 cm (5' 3) 04/26/2023 4:24 PM IMPRESS ASSOCIATE Body Mass Index 21.26 04/26/2023 4:24 PM IMPRESS ASSOCIATE Plan of Treatment Health Maintenance Due Date [...] Vaccines Completed 02/25/2012, 10/07, 08/18/2011 Care Teams Dip Stand Loader Relationship Specialty Start Date End Date Jeri Courtney PA [facility] [place] [address] PCP - General Physician Depilatory Painter 04/26/23
--- OUTSIDE RECORDS SUMMARY | 2024-12-06 11:31 | XMS_ITS | Referral Summary ---
Author Organization [facility] Address [address] [place] [address] Care Team Providers Care Assistant Branch Manager Name Role Phone Jeri Courtney Primary Care [...] on file Legal Sex Female 2:56 AM CREATIVE DESIGNER Gender Identity Not on file Sexual Orientation Not on file Last Filed Vital Signs Vital Sign Reading Time Taken Comments Blood Pressure 133/89 04/26/2023 4:24 PM CREATIVE DESIGNER Pulse 81 04/26/2023 4:24 PM CREATIVE DESIGNER Temperature 36.6 C (97.9 F) 04/26/2023 4:24 PM CREATIVE DESIGNER Respiratory Rate 18 04/26/2023 4:24 PM CREATIVE DESIGNER Oxygen Saturation 99% 04/26/2023 4:24 PM CREATIVE DESIGNER Inhaled Oxygen Concentration - - Weight 54.4 kg (120 lb) 04/26/2023 4:24 PM CREATIVE DESIGNER Height 160 cm (5' 3) 04/26/2023 4:24 PM CREATIVE DESIGNER Body Mass Index 21.26 04/26/2023 4:24 PM CREATIVE DESIGNER Plan of Treatment Not on file Care Teams Assistant Branch Manager Relationship Specialty Start Date End Date Jeri Courtney PA [address] [place] [id number] PCP - General Physician Boner Meat 04/26/23
--- OUTSIDE RECORDS SUMMARY | 2024-12-06 11:31 | XMS_ITS | Clinical Summary ---
Author Organization [facility] Address [address] [place] [address] Care Team Providers Care Hollock Maker Name Role Phone Chela Vieira MD Primary Care Provider [phone] Chela Vieira MD Unavailable Chela Vieira MD Unavailable Source Comments [facility],non-owned Affiliates and Associated Physician Practices is amultiple site organization consisting of ambulatory clinics and hospital sitesin [place], [place], [place] and [place]. This disclosure is being madepursuant to the Care Everywhere program and may not contain all information available regarding this patient. Last updated 18.[facility] Allergies No known active allergies Medications * [...] and will need to follow regulations in [place] for epilepsy when obtaining drivers license in [place] (she has not yet taken her test). [...] on file Legal Sex Female 9:09 AM EMBEDDED ENGINEER Gender Identity Not on file Sexual Orientation [...] patient's age to complete this topic Insurance [facility] Care Teams Hollock Maker Relationship Specialty Start Date End Date Chela Vieira MD [address] [place] [phone] PCP - General 11/07/19 Chela iVeira MD [address] [place] [phone] 11/07/19 Chela Vieira MD [address] [place] [phone] Pediatrics 08/01/19
[2024-12-06 11:36] LABS: Alanine Aminotransferase 12 U/L (6-35); Albumin Level 4.4 g/dL (3.5-5.1); Alkaline Phosphatase 45 U/L (38-126); Anion Gap 7 mmol/L (4-12); Aspartate Amino Transferase 30 U/L (14-36); Bilirubin,Total 2.0 mg/dL (0.2-1.3); Blood Urea Nitrogen 15 mg/dL (7-17); Calcium 9.2 mg/dL (8.4-10.2); Carbon Dioxide 24 mmol/L (22-30); Chloride 103 mmol/L (98-107); Estimated CRCL calculation 85 ml/min; Estimated Glomerular Filt Rate > 60; Glucose 84 mg/dL (65-110); Potassium 4.0 mmol/L (3.4-5.0); Sodium 134 mmol/L (137-145); Total Protein 7.5 g/dL (6.3-8.2)
--- NOTE | 2024-12-06 13:46 | PC.NURSE ---
Pelvic examine performed by MD Bianchi with RN in room.
== END 2024-12-06 14:05 | disposition home or self-care (01) ==
PROVIDERS: Registered Nurse; Emergency Provider Emergency Medicine
DX: N39.0 Urinary tract infection, site not specified (principal); N93.8 Other specified abnormal uterine and vaginal bleeding
CPT/HCPCS: 36415; 80053; 81001; 81025; 85025; 87491; 87591; 99284